=== PATIENT | female | born 1995 | race Two or more races ===

== ENCOUNTER 2024-03-11 18:18 | Emergency (ER) | payer MEDICAID ==
[~2024-03-11] VITALS: Ht 182.9 cm; Wt 90.0 kg
[2024-03-11 18:20] VITALS: TEMP 97.9; O2SAT 100
[2024-03-11] MEDS ORDERED: LORAZEPAM 0.5MG TABLET PO ONE (19:30)
[2024-03-11 19:57] LABS: BASOPHILS % 0.3 % (0.0-2.0); EOSINOPHILS % 0.3 % (0.0-5.0); HEMATOCRIT. 38.7 % (36.0-48.0); HEMOGLOBIN. 12.3 g/dL (12.0-16.0); LYMPHOCYTES % 26.3 % (20.0-50.0); MEAN CORPUSCULAR HEMOGLOBIN 25.8 pg (28.0-32.0); MEAN CORPUSCULAR HGB CONC 31.7 g/dL (31.0-37.0); MEAN CORPUSCULAR VOLUME 81.1 fL (81.0-99.0); MEAN PLATELET VOLUME 9.2 fl (7.4-10.4); MONOCYTES % 9.8 % (2.0-8.0); NEUTROPHILS % 63.3 % (40.0-76.0); PLATELET 310 x1000/uL (130-400); RED BLOOD CELL COUNT 4.77 mill/uL (4.2-5.4); RED CELL DISTRIBUTION WIDTH 14.2 % (11.6-14.6); WHITE BLOOD COUNT 10.6 x1000/uL (4.5-11.0)
[2024-03-11 20:03] LABS: CHLORIDE 106 mEq/L (98-107); POTASSIUM 3.5 mEq/L (3.5-5.1); SODIUM 138 mEq/L (136-145)
[2024-03-11 20:04] LABS: CARBON DIOXIDE 24 mEq/L (21-32)
[2024-03-11 20:05] LABS: CALCIUM 9.6 mg/dL (8.7-10.4)
[2024-03-11 20:09] LABS: CREATININE 1.1 mg/dL (0.6-1.0); GLUCOSE 132 mg/dL (70-105); HCG SCREEN NEGATIVE
[2024-03-11 20:10] LABS: UREA NITROGEN BLOOD 6 mg/dL (9-23)
[2024-03-11 20:12] LABS: TROPONIN I HIGH SENSITIVITY 9 ng/L (3.0-34)
[2024-03-11 21:45] VITALS: BP 134/78; PULSE 97; RESP 16
[2024-03-11] MEDS: LORAZEPAM 0.5MG TABLET PO NR (21:52)
== END 2024-03-11 21:59 | disposition home or self-care (01) ==
LOC: ER 18:18
DX: R00.2 Palpitations (principal); R07.89 Other chest pain; R06.02 Shortness of breath; F41.9 Anxiety disorder, unspecified
CPT/HCPCS: 36415; 71045; 80048; 84484; 84703; 85025; 93005; 99285